=== PATIENT | female | born 1990 | race Caucasian/White ===

== ENCOUNTER 2016-09-29 13:32 | Outpatient (CLI) | payer OTHER ==
[2016-09-29 14:12] LABS: BILIRUBIN,DIRECT 0.1 mg/dL (0.0-0.4)
== END 2016-09-29 13:33 ==
LOC: LAB 13:32
PROVIDERS: ATTEND Physician Assistant
DX: L70.0 Acne vulgaris (principal); Z79.899 Other long term (current) drug therapy
CPT/HCPCS: 36415; 80076; 82465; 84478

== ENCOUNTER 2016-11-03 11:45 | Outpatient (CLI) | payer OTHER ==
[2016-11-03 21:01] LABS: DIRECT BILIRUBIN 0.2 mg/dL (<0.4); TOTAL PROTEIN 6.5 g/dL (6.0-8.5)
== END 2016-11-03 11:46 ==
LOC: LAB 11:45
PROVIDERS: ATTEND Physician Assistant
DX: L70.0 Acne vulgaris (principal); Z79.899 Other long term (current) drug therapy
CPT/HCPCS: 36415; 80076; 82465; 84478

== ENCOUNTER 2016-12-08 08:47 | Outpatient (CLI) | payer OTHER ==
[2016-12-08 20:31] LABS: DIRECT BILIRUBIN <0.2 mg/dL (<0.4); TOTAL PROTEIN 6.9 g/dL (6.0-8.5)
== END 2016-12-08 08:50 ==
LOC: LAB 08:47
PROVIDERS: ATTEND Physician Assistant
DX: L70.0 Acne vulgaris (principal); Z79.899 Other long term (current) drug therapy
CPT/HCPCS: 36415; 80076; 82465; 84478